=== PATIENT | female | born 1960 | race Caucasian/White ===

== ENCOUNTER 2016-11-08 17:25 | Emergency (ER) | payer OTHER ==
[~2016-11-08] VITALS: Ht 167.6 cm; Wt 68.5 kg
[~2016-11-08 17:25] MED LIST: ASPI81TA82 PO; DILT120C58 PO; NYST100024 TOP; PROZ20CA11 PO
[2016-11-08 17:26] VITALS: BP 150/82; PULSE 64; RESP 16; TEMP 98.7; O2SAT 98
[2016-11-08] MEDS ORDERED: DILT30TA PO (17:39)
[2016-11-08] MEDS ORDERED: PROZ20CA11 PO (17:39)
[2016-11-08] MEDS ORDERED: HYDR-3516 PO (17:39)
[2016-11-08] MEDS ORDERED: DEXAMETHASONE SOD PHOS 20 MG/5 ML VIAL IM ONE (17:45)
[2016-11-08] MEDS ORDERED: KETOROLAC TROMETHAMINE 60 MG/2 ML (IM) VIAL IM ONE (17:45)
[2016-11-08] MEDS ORDERED: ORPHENADRINE INJ 60 MG/2 ML AMP IM ONE (17:45)
--- NOTE | 2016-11-08 17:52 | PD ---
HPI Chief Complaint: Back/ Neck Pain or Injury Time Seen by Provider: 17:46 Travel History International Travel<30 days: No Contact w/Intl Traveler<30days: No Traveled to known affect area: No History of Present Illness HPI Patient is a 56 year old female who presents emergency reevaluation of right mid back pain. Patient states she woke up and her back felt tight. Since that time it's gotten increasingly more painful. Patient took hydrocodone at home which she was prescribed for her neck pain. She reported that helped initially but the pain returned after medication wore off. She denies any numbness or tingling in her lower extremities, no bladder or bowel incontinence, no saddle paresthesia. Patient reports the pain as a 6/10. PFSH Past Medical History Anxiety: Yes Depression: Yes Heart Rhythm Problems: Yes (SVT) Diminished Hearing: No ?: Not Menopausal: Yes Past Surgical History Genitourinary Surgery: Yes (bladder lift 07) Gynecologic Surgery: Yes (hysterectomy 98) Hysterectomy: Yes (98) Social History Alcohol Use: Yes (3 DAILY) Tobacco Use: Yes (1 ppd) Substance Use: No Allergies-Medications (Allergen,Severity, Reaction): Coded Allergies: Sulfa (Verified Allergy, Mild, yeast, 11/08/16) Codeine (Verified Adverse Reaction, Severe, N/V, 11/08/16) Reported Meds & Prescriptions Reported Meds & Active Scripts Active Reported Hydrocodone-Acetaminophen 5-325 mg Tab 1 Tab PO Q6H PRN Prozac (Fluoxetine HCl) 20 Mg Cap 20 Mg PO DAILY Diltiazem (Diltiazem HCl) 30 Mg Tab Unknown Dose PO DAILY Review of Systems Except as stated in HPI: all other systems reviewed are Neg Musculoskeletal: Positive: Myalgias, Cramping, Pain Physical Exam Narrative GENERAL: Well-nourished, well-developed patient. SKIN: Warm and dry. HEAD: Normocephalic. EYES: No scleral icterus. No injection or drainage. NECK: Supple, trachea midline. No JVD or lymphadenopathy. CARDIOVASCULAR: Regular rate and rhythm without murmurs, gallops, or rubs. RESPIRATORY: Breath sounds equal bilaterally. No accessory muscle use. GASTROINTESTINAL: Abdomen soft, non-tender, nondistended. MUSCULOSKELETAL: No cyanosis, or edema. Tenderness to palpation in right paraspinal musculature in the thoracic region. No spinal tenderness noted. NEUROLOGICAL: Awake and alert. Cranial nerves II through XII intact. Motor and sensory grossly within normal limits. Five out of 5 muscle strength in all muscle groups. Normal speech. BACK: Nontender without obvious deformity. No CVA tenderness. Data Data Last Documented VS Vital Signs Date Time Temp Pulse Resp B/P Pulse Ox O2 Delivery O2 Flow Rate FiO2 11/08/16 17:26 98.7 64 16 150/82 98 Orders Ketorolac Inj (Toradol Inj) (11/08/16 17:45) Orphenadrine Inj (Norflex Inj) (11/08/16 17:45) Dexamethasone Inj (Decadron Inj) (11/08/16 17:45) [facility] Medical Decision Making Medical Screen Exam Complete: Yes Emergency Medical Condition: Yes Interpretation(s) Vital Signs Date Time Temp Pulse Resp B/P Pulse Ox O2 Delivery O2 Flow Rate FiO2 11/08/16 17:26 98.7 64 16 150/82 98 Differential Diagnosis Strain versus spasm versus discogenic pain versus other Narrative Course Patient is a 56-year-old female who presented to our evaluation of right mid back pain that started this morning after awakening. There was no injury or trauma. Physical examination is most consistent with a muscle spasm. Patient will be given toward all, Norflex, dexamethasone emergency department. Will reassess. Patient reports improvement in her symptoms after medication administration. She was encouraged to take medications as directed, avoid bed rest, apply warm moist heat to affected area. He is encouraged follow-up with her primary doctor return to emergency department for any new or worsening symptoms. Patient verbalized understanding of these instructions. Patient stable for discharge. Diagnosis Primary Impression: Muscle spasm Referrals: Primary Care Physician Patient Instructions: General Instructions, Muscle Spasm (ED) Departure Forms: Tests/Procedures, Work Release Enter return to work date: Nov 11, 2016 Additional Instructions: Follow-up with your primary doctor Return to emergency department for any new or worsening symptoms Alternate heat and ice to affected area, continue range of motion exercises, avoid bed rest Take medications as directed Med/Other Pt SpecificInfo: Prescription(s) given Scripts Prednisone 50 Mg Tab50 Mg PO DAILY 3 Days Ref 0 Prov:Liseth Davey 11/08/16 Cyclobenzaprine (Flexeril)10 Mg Tab10 Mg PO TID PRN (MUSCLE SPASM) 10 Days Ref 0 Prov:Liseth Davey 11/08/16 Ibuprofen 800 Mg [id number] Mg PO Q8H PRN (Pain/Inflammation) 10 Days Ref 0 Prov:Liseth Davey 11/08/16 Disposition: 01 DISCHARGE HOME Condition: Stable Liseth Davey Nov 08, 2016 17:52
[2016-11-08] MEDS ORDERED: IBUP800T23 PO (19:01)
[2016-11-08] MEDS ORDERED: PRED50 PO (19:01)
[2016-11-08] MEDS ORDERED: CYCL1TAB29 PO (19:01)
[2016-11-11] MEDS ORDERED: PROZ20CA11 PO (10:54)
[2017-01-01] MEDS ORDERED: DILT120C PO (10:55)
== END 2016-11-08 19:10 | disposition home or self-care (01) ==
LOC: PHEFT 17:25
DX: M62.830 Muscle spasm of back (principal); F17.210 Nicotine dependence, cigarettes, uncomplicated
CPT/HCPCS: 96372; 99283; J1100; J1885; J2360

== ENCOUNTER 2017-05-25 13:26 | Emergency (ER) | payer OTHER ==
[~2017-05-25] VITALS: Ht 165.1 cm; Wt 70.2 kg
[~2017-05-25 13:26] MED LIST changes: -ASPI81TA82 PO; +CYCL1TAB29 PO; +DILT120C PO; -DILT120C58 PO; +HYDR-3516 PO; +IBUP800T23 PO; -NYST100024 TOP; +PRED50 PO
[2017-05-25 15:16] VITALS: BP 144/68; PULSE 59; RESP 16; TEMP 98.2; O2SAT 98
--- NOTE | 2017-05-25 16:55 | PD ---
HPI Chief Complaint: Fall Time Seen by Provider: 16:51 Travel History International Travel<30 days: No Contact w/Intl Traveler<30days: No Traveled to known affect area: No History of Present Illness HPI 57-year-old female patient presents to the ER today because she states that she slipped and fell on her porch onto her left hip area last night, and woke up this morning noticed significant pain and bruising of the left hip area. She was able to bear some weight but there was pain with ambulation on that side. She denies any head injury, loss of consciousness, or any other injuries. Modifying Factors: None Associated Signs & Symptoms: Fall, left hip injury Risk Factors: None PFSH Past Medical History Anxiety: Yes Depression: Yes Heart Rhythm Problems: Yes (SVT) Diminished Hearing: No Menopausal: Yes Past Surgical History Genitourinary Surgery: Yes (bladder lift 07) Gynecologic Surgery: Yes (hysterectomy 98) Hysterectomy: Yes (98) Social History Alcohol Use: Yes (3 DAILY) Tobacco Use: Yes (1 ppd) Substance Use: No Allergies-Medications (Allergen,Severity, Reaction): Coded Allergies: Sulfa (Sulfonamide Antibiotics) (Unverified Allergy, Mild, yeast, 05/20/17) codeine (Unverified Adverse Reaction, Severe, N/V, 05/20/17) Reported Meds & Prescriptions Reported Meds & Active Scripts Active Prozac (Fluoxetine HCl) 20 Mg Cap 20 Mg PO DAILY Diltiazem CD 24 HR 120 Mg Capcr 1 Tab PO DAILY Review of Systems Except as stated in HPI: all other systems reviewed are Neg Physical Exam Narrative GENERAL: Well-developed middle age white female patient currently in mild distress. Awake and oriented 3. SKIN: Focused skin assessment warm/dry. HEAD: Atraumatic. Normocephalic. EYES: Pupils equal and round. No scleral icterus. No injection or drainage. ENT: No nasal bleeding or discharge. Mucous membranes pink and moist. NECK: Trachea midline. No JVD. CARDIOVASCULAR: Regular rate and rhythm. No murmur appreciated. RESPIRATORY: No accessory muscle use. Clear to auscultation. Breath sounds equal bilaterally. GASTROINTESTINAL: Abdomen soft, non-tender, nondistended. Hepatic and splenic margins not palpable. Pelvis: Stable, tender to palpation with notable large area of ecchymosis to the left mid femur area. MUSCULOSKELETAL: No obvious deformities. No clubbing. No cyanosis. No edema. NEUROLOGICAL: Awake and alert. No obvious cranial nerve deficits. Motor grossly within normal limits. Normal speech. PSYCHIATRIC: Appropriate mood and affect; insight and judgment normal. Data Data Last Documented VS Vital Signs Date Time Temp Pulse Resp B/P (MAP) Pulse Ox O2 Delivery O2 Flow Rate FiO2 05/25/17 15:16 98.2 59 16 144/68 (93) 98 Room Air Orders Orders Complete Blood Count With Diff (05/25/17 16:51) Basic Metabolic Panel (Bmp) (05/25/17 16:51) Prothrombin Time / Inr (Pt) (05/25/17 16:51) Act Partial Throm Time (Ptt) (05/25/17 16:51) Femur (Ap & Lat/2vws) (05/25/17 16:51) Hip, Uni(Ap&Lat) W Ap Pelvis (05/25/17 16:51) Morphine Inj (Morphine Inj) (05/25/17 17:15) Ondansetron Inj (Zofran Inj) (05/25/17 17:15) Labs Laboratory Tests Test 05/25/17 18:02 White Blood Count 8.6 TH/MM3 Red Blood Count 3.83 MIL/MM3 Hemoglobin 13.1 GM/DL Hematocrit 38.2 % Mean Corpuscular Volume 99.5 FL Mean Corpuscular Hemoglobin 34.2 PG Mean Corpuscular Hemoglobin Concent 34.4 % Red Cell Distribution Width 11.7 % Platelet Count 117 TH/MM3 Mean Platelet Volume 9.4 FL Neutrophils (%) (Auto) 58.1 % Lymphocytes (%) (Auto) 32.4 % Monocytes (%) (Auto) 7.5 % Eosinophils (%) (Auto) 1.2 % Basophils (%) (Auto) 0.8 % Neutrophils # (Auto) 5.0 TH/MM3 Lymphocytes # (Auto) 2.8 TH/MM3 Monocytes # (Auto) 0.6 TH/MM3 Eosinophils # (Auto) 0.1 TH/MM3 Basophils # (Auto) 0.1 TH/MM3 CBC Comment DIFF FINAL Differential Comment Blood Urea Nitrogen 15 MG/DL Creatinine 0.68 MG/DL Random Glucose 99 MG/DL Calcium Level 8.9 MG/DL Sodium Level 139 MEQ/L Potassium Level 3.8 MEQ/L Chloride Level 107 MEQ/L Carbon Dioxide Level 25.9 MEQ/L Anion Gap 6 MEQ/L Estimat Glomerular Filtration Rate 89 ML/MIN MDM Medical Decision Making Medical Screen Exam Complete: Yes Emergency Medical Condition: Yes Medical Record Reviewed: Yes Interpretation(s) Laboratory Tests Test 05/25/17 18:02 Red Blood Count 3.83 MIL/MM3 (4.00-5.30) Mean Corpuscular Hemoglobin 34.2 PG (27.0-34.0) Platelet Count 117 TH/MM3 (150-450) Differential Diagnosis Hip injurycontusion and hematoma versus fracture Narrative Course X-rays did not show any signs of acute fractures. She appears to have a contusion of her hip. At this point, my plan would be to give her symptomatic relief or pain and have her stay off of the leg since is paining her for the next few days. Follow-up with primary care physician. Return for any worsening in symptoms as needed. The plan has been discussed with her and she states understanding. Diagnosis Primary Impression: Contusion of hip, left Med/Other Pt SpecificInfo: Prescription(s) given Scripts Tramadol (Tramadol) 50 Mg Tab 50 MG PO Q6H Y for PAIN, #15 TAB 0 Refills Prov: Ema Larios MD 05/25/17 Disposition: 01 DISCHARGE HOME Condition: Stable Ema Larios MD May 25, 2017 16:55
[2017-05-25] MEDS ORDERED: ONDANSETRON HCL 4 MG/2 ML VIAL IV PUSH ONE (17:15)
[2017-05-25] MEDS ORDERED: MORPHINE SULFATE 4 MG/ML INJ IV PUSH ONE (17:15)
--- NOTE | 2017-05-25 17:53 | RADRPT ---
EXAM DATE/TIME: 05/25/2017 17:21 [facility] COMPARISON: No previous studies available for comparison. INDICATIONS : Fall. Left hip pain. MEDICAL HISTORY : None. SURGICAL HISTORY : None. ENCOUNTER: Initial ACUITY: 1 day PAIN SCORE: 8/10 LOCATION: Left lateral FINDINGS: No definite fractures, or dislocations are identified. No definite lytic or sclerotic lesion is seen . The joint spaces are well maintained. CONCLUSION: Unremarkable study. Katya Will MD on May 25, 2017 at 17:51 Board Certified Radiologist. This report was verified electronically.
--- NOTE | 2017-05-25 17:54 | RADRPT ---
EXAM DATE/TIME: 05/25/2017 17:29 [facility] COMPARISON: No previous studies available for comparison. INDICATIONS : Fall. Left upper leg pain. MEDICAL HISTORY : None. SURGICAL HISTORY : None. ENCOUNTER: Initial ACUITY: 1 day PAIN SCORE: 7/10 LOCATION: Left lateral FINDINGS: No definite fractures, or dislocations are identified. No definite lytic or sclerotic lesion is seen . CONCLUSION: Unremarkable study. aKtya Will MD on May 25, 2017 at 17:52 Board Certified Radiologist. This report was verified electronically.
[2017-05-25 18:07] LABS: BASOPHIL # 0.1 TH/MM3 (0-0.2); BASOPHIL % 0.8 % (0.0-2.0); EOSINOPHIL # 0.1 TH/MM3 (0-0.4); EOSINOPHIL % 1.2 % (0.0-4.0); HEMATOCRIT 38.2 % (35.0-46.0); HEMO FLAGS DIFF FINAL; LYMPH % 32.4 % (9.0-44.0); LYMPHOCYTE # 2.8 TH/MM3 (1.0-4.8); MEAN CELL VOLUME 99.5 FL (80.0-100.0); MEAN CORPUSCULAR HEMOGLOBIN 34.2 PG (27.0-34.0); MEAN CORPUSCULAR HGB CONC 34.4 % (32.0-36.0); MONO % 7.5 % (0.0-8.0); NEUT % 58.1 % (16.0-70.0); PLATELET COUNT 117 TH/MM3 (150-450); RED BLOOD COUNT 3.83 MIL/MM3 (4.00-5.30); RED CELL DISTRIBUTION WIDTH 11.7 % (11.6-17.2); WHITE BLOOD COUNT 8.6 TH/MM3 (4.0-11.0)
[2017-05-25 18:16] LABS: POTASSIUM 3.8 MEQ/L (3.5-5.1)
[2017-05-25 18:19] LABS: BICARBONATE 25.9 MEQ/L (21.0-32.0)
[2017-05-25 18:55] LABS: APTT (PATIENT) 26.4 SEC (24.3-30.1); INTERNATIONAL NORMALIZED RATIO 0.9 RATIO; PROTHROMBIN TIME - PATIENT 10.2 SEC (9.8-11.6)
[2017-05-25] MEDS ORDERED: TRAM50TA PO (18:55)
[2017-07-21] MEDS ORDERED: DILT120C PO (16:41)
== END 2017-05-25 20:16 | disposition home or self-care (01) ==
LOC: PHED 13:26
DX: S70.02XA Contusion of left hip, initial encounter (principal); W01.0XXA Fall on same level from slipping, tripping and stumbling without subsequent striking against object, initial encounter; Y92.008 Other place in unspecified non-institutional (private) residence as the place of occurrence of the external cause; F17.210 Nicotine dependence, cigarettes, uncomplicated
CPT/HCPCS: 73502; 73552; 80048; 85025; 85610; 85730; 96374; 96375; 99284; J2270; J2405